=== PATIENT | male | born 1965 | race Caucasian/White ===

== ENCOUNTER → 2019-04-17 15:50 | Outpatient (CLI) | payer OTHER, SELFPAY ==
[2019-04-24 09:07] LABS: Ca Oxalate, Dihydrate 35 % (.); Ca Oxalate, Monohydrate 60 % (.); Size 6x3x2 mm (.)
[2019-04-24 12:15] LABS: Comment Note: (.)
== END ==
PROVIDERS: Family Provider Family Medicine; PCP Family Medicine; Referring Provider Nurse Practitioner Adult Health; Visit Provider Nurse Practitioner Adult Health
DX: N20.0 Calculus of kidney (principal)
CPT/HCPCS: 82360